=== PATIENT | female | born 1975 | race Caucasian/White ===

== ENCOUNTER → 2023-09-16 10:45 | Outpatient (REF) | payer OTHER, SELFPAY | LOC: HWRAD 10:45 | PROVIDERS: ATTENDING PHYSICIAN Family Medicine; FAMILY PHYSICIAN Family Medicine | DX: S20.20XA Contusion of thorax, unspecified, initial encounter (principal) | CPT/HCPCS: 71101 ==

== ENCOUNTER 2024-02-25 18:24 | Emergency (ER) | payer OTHER, SELFPAY ==
[2024-02-25 18:31] VITALS: BP 162/117
[2024-02-25 19:00] LABS: % Basophils 0.3 % (0-2); % Eosinophils 0.1 % (0-6); % Immature Granulocytes 0.4 % (0-0.5); % Lymphocytes 12.1 % (20.5-51.1); % Monocytes 6.3 % (1.7-9.3); % Neutrophils 80.8 % (42.2-75.2); Absolute Immature Granulocytes 0.1 10^3/uL (0-0.05); Absolute Lymphocytes 1.5 10^3/uL (1.2-3.4); Absolute Monocytes 0.8 10^3/uL (0.1-0.6); Hematocrit 41.6 % (37.0-47.0); Hemoglobin 14.3 g/dL (12.0-16.0); Mean Corp Hgb Conc. 34.4 g/dL (33.0-37.0); Mean Corpuscular Hgb 26.6 pg (27.0-31.0); Mean Corpuscular Volume 77.3 fL (81.0-99.0); Mean Platelet Volume 9.6 fL (7.4-10.4); Nucleated Red Blood Cells % 0 %; Platelet Count 418 10^3/uL (130-400); Red Blood Cell Count 5.38 10^6/uL (4.20-5.40); Red Cell Dist. Width 15.6 % (11.5-14.5); White Blood Cell Count 12.3 10^3/uL (4.8-10.8)
[2024-02-25 19:01] LABS: HCG, Serum Qualitative Screen Negative
[2024-02-25 19:09] LABS: ALT (SGPT) 35 U/L (0-35); AST (SGOT) 41 U/L (14-36); Albumin 4.9 g/dl (3.5-5.0); Alkaline Phosphatase 115 U/L (38-126); Blood Urea Nitrogen 18 mg/dl (7-17); Calcium 10.3 mg/dl (8.4-10.2); Carbon Dioxide 28 mmol/L (22-30); Chloride 91 mmol/L (98-107); Glucose 135 mg/dl (70-99); Potassium 4.2 mmol/L (3.5-5.1); Sodium 135 mmol/L (135-145); Total Bilirubin 1.3 mg/dl (0.2-1.3); Total Protein 7.9 g/dl (6.3-8.2); eGFR > 60.00
--- NOTE | 2024-02-25 19:48 | ED.GENMED ---
Addendum entered and electronically signed by TAVO Huang 02/25/24 22:26:
ECG- rate 94, Sr, Normal axis. QRS normal. Long QT, Negative for ischemia.
Original Note:
History of Present Illness
General
Chief Complaint: Abdominal Symptoms
Source: patient
Exam Limitations: none
Time Seen by Provider: 02/25/24 19:15
History of Present Illness
History of Present Illness:
This is a 48 year old female that comes in with c/o abd pain. States that she was diagnosed with COVID on . States that she has not been able to eat or drink in the past 2-3 days. States that she has not had a BM or urinated. States that
everything she puts in her mouth she vomits. States that she has lower back pain and abd pain. States that her abd pain feels like cramping. States that she also has a headache. Denies any fever, chills, chest pain, SOB, diarrhea, dizziness, urinary
burning.
Past History
Past History
ED Past Medical History: Seizures and Other (Migraine, UTI, constipation, Anemia, ); Negative Asthma, HTN, Hypercholesterolemia or NIDDM
ED Past Surgical History: Gynecological (tubal) and Other (Brain surgery)
Patient has exhibited threatening behavior?: No
PSI?: No
Social History
Tobacco: Smoker
Alcohol: Occasional
Drug: None
Personal: Single
Living: with family
Employment: Employed
Family History
Family History: Diabetes
Review of Systems
Review of Systems
All Other Systems: ROS reviewed and negative except as documented in HPI and ROS
Constitutional: Reports no symptoms; Denies fever or chills
EENT: Reports no symptoms
Respiratory: Reports no symptoms; Denies cough or trouble breathing
Cardiac: Reports no symptoms; Denies chest pain
ABD/GI: Reports abdominal pain, nausea and vomiting; Denies diarrhea
: Reports other (decreased urine output); Denies dysuria, frequency or urgency
Musculoskeletal: Reports no symptoms
Skin: Reports no symptoms
Neurological: Reports headache; Denies dizzy
Psychiatric: Reports no symptoms
Phy Exam
General Physical Exam
General Presentation: no apparent distress
General age: appears stated age
General Skin: warm and dry
General Habitus: normal
General Mental: alert
General Hydration: dry mucous membranes
ENT Exam
ENT Exam: TM's normal, pharynx normal and neck supple
Eye Exam
Eye Exam: EOMI
Cardiovascular Exam
Cardiovascular Exam: regular rate/rhythm, no edema, no murmur and normal peripheral pulses
Pulmonary Exam
Pulmonary Exam: lungs clear, no respiratory distress, no rales, chest non tender, no crackles, no rhonchi, no wheezing and no cough
Gastrointestinal Exam
Gastrointestinal Exam: normal bowel sounds, soft, no organomegaly, no pulsatile mass, non distended and tender (Lower abd tenderness with palpation)
Musculoskeletal Exam
Musculoskeletal Exam: full ROM and no edema
Skin Exam
Skin Exam: normal color, warm/dry, no rash and no petechia
Psychiatric Exam
Psychiatric Exam: normal mood/affect
Course
Orders/Labs/Results
Orders:
Orders
02/25/24 18:33
Test Result ONCE
02/25/24 18:34
Complete Blood Count/With Diff Urgent
Comprehensive Metabolic Panel Urgent
HCG, Serum Qualitative Screen Urgent
02/25/24 19:46
CT Abd/pelvis W Iv Cont Urgent
Comment:
Reason For Exam: Lower abd tenderness with palpation
0.9% Sodium Chloride 1000 ml [Nss] 1,000 ml IV BOLUS
02/25/24 19:47
Electrocardiogram (*1) Urgent
Reason for Study: QTc Monitoring
EKG- Treatment ONCE
Ondansetron Injectable [Zofran] 4 mg IV NOW STA
02/25/24 21:24
Urinalysis Reflex To Culture Urgent
Date Specimen was Collected: 02/25/24
Time Specimen was Collected: 19:53
Abnormal Lab Results
02/25/24
18:34
WBC 12.3 H 10^3/uL
(4.8-10.8)
MCV 77.3 L fL
(81.0-99.0)
MCH 26.6 L pg
(27.0-31.0)
RDW 15.6 H %
(11.5-14.5)
Plt Count 418 H 10^3/uL
(130-400)
Abs Immat Gran (auto) 0.1 H 10^3/uL
(0-0.05)
Absolute Neuts (auto) 10.0 H 10^3/uL
(1.4-6.5)
Absolute Monos (auto) 0.8 H 10^3/uL
(0.1-0.6)
Neutrophils % 80.8 H %
(42.2-75.2)
Lymphocytes % 12.1 L %
(20.5-51.1)
Chloride 91 L mmol/L
(98-107)
BUN 18 H mg/dl
(7-17)
Glucose 135 H mg/dl
(70-99)
Calcium 10.3 H mg/dl
(8.4-10.2)
AST 41 H U/L
(14-36)
02/25/24 18:34
02/25/24 18:34
Leukocytosis, Plt slightly elevated. chloride low. slight Dehydration, Hyperglycemia, AST mildly elevated. HCG negative. Urine negative for infection.
Vital Signs
Initial and Last Documented VS:
Initial Vital Signs
Temp Pulse Resp BP Pulse Ox
99.5 F 101 16 162/117 97
02/25/24 18:31 02/25/24 18:31 02/25/24 18:31 02/25/24 18:31 02/25/24 18:31
Last Documented Vital Signs
Temp Pulse Resp BP Pulse Ox
99.5 F 101 16 155/77 93
02/25/24 18:31 02/25/24 18:31 02/25/24 18:31 02/25/24 20:18 02/25/24 20:18
MDM/Problems Addressed
Differential Diagnosis Includes:
Constipation. Diverticulitis, UTI
MDM/Problems Addressed:
this is a 48 year old female that comes in with c/o abd pain, vomiting, and decreased urine output. Stae that this started 2-3 days ago. State that everything she tried to eat or drink she vomits right back up.
Will check labs, IV fluids, urine, CT abd.
Back into see patient. Explained that her CT is normal and her urine is negative for infection. Patient to stay on a liquid diet for the next 24 hours and increase her diet as tolerated. A prescription for Zofran has been sent to your Pharmacy.
Follow up with the family doctor for recheck. IF YOU HAVE AN YOTHER CONCERNS PLEASE RETURN TO THE EMERGENCY ROOM.
Chronic conditions affecting care:
history of UTI, constipation
Acute Exacerbation and/or Progression of Chronic Illness:
UTi history.
*Radiology
Radiology exam reviewed: radiology read reviewed (CT-NO signifcantacute abnormality identified in the abdomen or pelvis , as described above. Normal appendix. )
*Pulse Oximetry
Patient hypoxic: no
*Sketch Liner Interpretation
Rate: Sketch Liner- N/A
*Critical Care Note
Total Time (30-74mins, 75-104mins- exclusive of procedures): Not Applicable
ED Attending Note
-
Portions of this chart may have been created with voice recognition software.� Occasional wrong word or��sound alike� substitutions may have occurred due to the inherent limitations of voice recognition software.
Discharge Plan
Departure
Patient Disposition: Home (Routine Discharge)
Date of Disposition: 02/25/24
Time of Disposition: 21:56
Patient with high blood pressure during this ER visit?: Yes
Condition: Good
Covid-19: Not Applicable
Discharge Problem:
Nausea & vomiting, Abdominal pain
Instructions: Clear Liquid Diet, Nausea and Vomiting, Adult (DC), Abdominal Pain, BLOOD PRESSURE
Prescriptions:
New
ondansetron 4 mg tablet,disintegrating
4 mg PO Q8H PRN (Reason: nausea and vomiting) Qty: 10 0RF
No Action
lamotrigine 100 MG tablet
300 mg PO BID
citalopram 10 mg Tablet
10 mg PO DAILY
omeprazole 20 mg Capsule,Delayed Release(Dr/Ec)
20 mg PO DAILY
cetirizine [Zyrtec] 10 mg Tablet
10 mg PO DAILY
acetaminophen 325 mg Tablet
650 mg PO Q6HPRN PRN (Reason: mild pain/ fever>100.5F) Qty: 100 0RF
ondansetron 4 mg tablet,disintegrating
4 mg PO Q6H PRN (Reason: nausea and vomiting) Qty: 30 0RF
Referrals:
Luiz Jacinto MD [Family Provider] - Call in 1-3 days for appt
Activity Restrictions/Additional Instructions:
As discussed, your blood work shows that your white blood cell count is slightly elevated. your urine is negative for infection and your CT scan is negative for any acute process. This may all be due to COVID. A prescription for Zofran has been sent
to your Pharmacy. Please stay on a liquid diet tomorrow and advance as tolerated. Please increase your water intake to 8-8oz glasses daily. Follow up with the family doctor. IF YOU HAVE ANY OTHER CONCERNS PLEASE RETURN TO THE EMERGENCY ROOM.
Interventions
Interventions:
*Risk Screen - Suicide Last Done: 02/25/24 20:19
*General Assessment Last Done: 02/25/24 20:19
*Neglect/Abuse Screening Last Done: 02/25/24 20:19
*ED COVID-19 Vaccine History Last Done: 02/25/24 20:19
JZ-Leyxzt-Ijofmrwtuc Assessment Last Done: 02/25/24 20:19
Discharge Date and Time
Print Language: AZERI
[2024-02-25 20:09] VITALS: BMI 30.1
[2024-02-25] MEDS: NSS 1000 IV (20:11)
[2024-02-25] MEDS: ZOFRAN 4 MG IV (20:13)
[2024-02-25 20:18] VITALS: BP 155/77
[2024-02-25 21:30] LABS: Urine Albumin Trace (Neg - Trace); Urine Bilirubin Negative (Negative); Urine Character Clear (Clear); Urine Color Yellow; Urine Glucose Negative (Negative); Urine Ketone Negative (Negative); Urine Leukocyte Negative (Negative); Urine Nitrite Negative (Negative); Urine Occult Blood Negative (Negative); Urine Urobilinogen Negative (Neg - 1+)
--- NOTE | 2024-02-25 22:20 | ED.GENMED ---
History of Present Illness
General
Chief Complaint: Abdominal Symptoms
Time Seen by Provider: 02/25/24 19:15
Past History
Past History
ED Past Medical History: Seizures and Other (Migraine, UTI, constipation, Anemia, ); Negative Asthma, HTN, Hypercholesterolemia or NIDDM
ED Past Surgical History: Gynecological (tubal) and Other (Brain surgery)
Patient has exhibited threatening behavior?: No
PSI?: No
Social History
Tobacco: Smoker
Alcohol: Occasional
Drug: None
Personal: Single
Living: with family
Employment: Employed
Family History
Family History: Diabetes
Course
Orders/Labs/Results
Orders:
Orders
02/25/24 18:33
Test Result ONCE
02/25/24 18:34
Complete Blood Count/With Diff Urgent
Comprehensive Metabolic Panel Urgent
HCG, Serum Qualitative Screen Urgent
02/25/24 19:46
CT Abd/pelvis W Iv Cont Urgent
Comment:
Reason For Exam: Lower abd tenderness with palpation
0.9% Sodium Chloride 1000 ml [Nss] 1,000 ml IV BOLUS
02/25/24 19:47
Electrocardiogram (*1) Urgent
Reason for Study: QTc Monitoring
EKG- Treatment ONCE
Ondansetron Injectable [Zofran] 4 mg IV NOW STA
02/25/24 21:24
Urinalysis Reflex To Culture Urgent
Date Specimen was Collected: 02/25/24
Time Specimen was Collected: 19:53
02/25/24 22:18
Ondansetron Injectable [Zofran] 4 mg IV NOW STA
Abnormal Lab Results
02/25/24
18:34
WBC 12.3 H 10^3/uL
(4.8-10.8)
MCV 77.3 L fL
(81.0-99.0)
MCH 26.6 L pg
(27.0-31.0)
RDW 15.6 H %
(11.5-14.5)
Plt Count 418 H 10^3/uL
(130-400)
Abs Immat Gran (auto) 0.1 H 10^3/uL
(0-0.05)
Absolute Neuts (auto) 10.0 H 10^3/uL
(1.4-6.5)
Absolute Monos (auto) 0.8 H 10^3/uL
(0.1-0.6)
Neutrophils % 80.8 H %
(42.2-75.2)
Lymphocytes % 12.1 L %
(20.5-51.1)
Chloride 91 L mmol/L
(98-107)
BUN 18 H mg/dl
(7-17)
Glucose 135 H mg/dl
(70-99)
Calcium 10.3 H mg/dl
(8.4-10.2)
AST 41 H U/L
(14-36)
02/25/24 18:34
02/25/24 18:34
Vital Signs
Initial and Last Documented VS:
Initial Vital Signs
Temp Pulse Resp BP Pulse Ox
99.5 F 101 16 162/117 97
02/25/24 18:31 02/25/24 18:31 02/25/24 18:31 02/25/24 18:31 02/25/24 18:31
Last Documented Vital Signs
Temp Pulse Resp BP Pulse Ox
99.5 F 101 16 155/77 93
02/25/24 18:31 02/25/24 18:31 02/25/24 18:31 02/25/24 20:18 02/25/24 20:18
*EKG
Interpreted by ED Provider?: Yes
Heart Rate: 94
Rate: normal
Rhythm: sinus
[place]: normal axis
Interval: long QT
QRS Pattern: normal QRS
Ischemia: no ischemia
ED Attending Note
-
Portions of this chart may have been created with voice recognition software.� Occasional wrong word or��sound alike� substitutions may have occurred due to the inherent limitations of voice recognition software.
Discharge Plan
Departure
Patient Disposition: Home (Routine Discharge)
Date of Disposition: 02/25/24
Time of Disposition: 21:56
Patient with high blood pressure during this ER visit?: Yes
Condition: Good
Covid-19: Not Applicable
Discharge Problem:
Nausea & vomiting, Abdominal pain
Instructions: Clear Liquid Diet, Nausea and Vomiting, Adult (DC), Abdominal Pain, BLOOD PRESSURE
Prescriptions:
New
metoclopramide HCl [Reglan] 10 mg tablet
10 mg PO Q8HPRN PRN (Reason: nausea and vomiting) Qty: 9 0RF
Discontinued
ondansetron 4 mg tablet,disintegrating
4 mg PO Q6H PRN (Reason: nausea and vomiting) Qty: 30 0RF
No Action
lamotrigine 100 MG tablet
300 mg PO BID
citalopram 10 mg Tablet
10 mg PO DAILY
omeprazole 20 mg Capsule,Delayed Release(Dr/Ec)
20 mg PO DAILY
cetirizine [Zyrtec] 10 mg Tablet
10 mg PO DAILY
acetaminophen 325 mg Tablet
650 mg PO Q6HPRN PRN (Reason: mild pain/ fever>100.5F) Qty: 100 0RF
Referrals:
Luiz Jacinto MD [Family Provider] - Call in 1-3 days for appt
Activity Restrictions/Additional Instructions:
As discussed, your blood work shows that your white blood cell count is slightly elevated. your urine is negative for infection and your CT scan is negative for any acute process. This may all be due to COVID. A prescription for Zofran has been sent
to your Pharmacy. Please stay on a liquid diet tomorrow and advance as tolerated. Please increase your water intake to 8-8oz glasses daily. Follow up with the family doctor. IF YOU HAVE ANY OTHER CONCERNS PLEASE RETURN TO THE EMERGENCY ROOM.
Interventions
Interventions:
*Risk Screen - Suicide Last Done: 02/25/24 20:19
*General Assessment Last Done: 02/25/24 20:19
*Neglect/Abuse Screening Last Done: 02/25/24 20:19
*ED COVID-19 Vaccine History Last Done: 02/25/24 20:19
JH-Uogiwc-Nnkubsfwnc Assessment Last Done: 02/25/24 20:19
Discharge Date and Time
Print Language: BURUNDIAN
[2024-02-25 22:22] VITALS: BP 134/58
[2024-02-25] MEDS: REGLAN 10 MG IV (22:25)
== END 2024-02-25 22:40 | disposition home or self-care (01) ==
LOC: EMR 18:24
PROVIDERS: Clinical Nurse Specialist Family Health; Emergency Medicine; EMERGENCY PHYSICIAN Emergency Medicine; FAMILY PHYSICIAN Family Medicine
DX: R11.2 Nausea with vomiting, unspecified (principal); R10.9 Unspecified abdominal pain; I10 Essential (primary) hypertension; F17.200 Nicotine dependence, unspecified, uncomplicated
CPT/HCPCS: 99285; 96374; 96375; 96361; 74177; 80053; 81003; 84703; 85025; 93005; Q9967

== ENCOUNTER → 2024-03-23 15:08 | Outpatient (REF) | payer OTHER, SELFPAY | LOC: HWRAD 15:08 | PROVIDERS: ATTENDING PHYSICIAN Family Medicine | DX: S69.91XA Unspecified injury of right wrist, hand and finger(s), initial encounter (principal) | CPT/HCPCS: 73140 ==

== ENCOUNTER 2024-05-23 06:33 | Emergency (ER) | payer OTHER, SELFPAY ==
[2024-05-23 06:36] VITALS: BP 133/88; BMI 29.0
--- NOTE | 2024-05-23 06:54 | EDRN ---
Pts Clobazam bottle was filled 3 days ago - prescribed 1/2 pill daily , states she took the whole bottle over the past day.
[2024-05-23 07:03] LABS: % Basophils 0.7 % (0-2); % Eosinophils 2.7 % (0-6); % Immature Granulocytes 0.5 % (0-0.5); % Lymphocytes 21.2 % (20.5-51.1); % Monocytes 6.8 % (1.7-9.3); % Neutrophils 68.1 % (42.2-75.2); Absolute Basophils 0.1 10^3/uL (0-0.2); Absolute Eosinophils 0.3 10^3/uL (0-0.7); Absolute Immature Granulocytes 0.1 10^3/uL (0-0.05); Absolute Lymphocytes 2.2 10^3/uL (1.2-3.4); Absolute Monocytes 0.7 10^3/uL (0.1-0.6); Absolute Neutrophils 6.9 10^3/uL (1.4-6.5); Hematocrit 36.9 % (37.0-47.0); Hemoglobin 12.1 g/dL (12.0-16.0); Mean Corp Hgb Conc. 32.8 g/dL (33.0-37.0); Mean Corpuscular Hgb 28.5 pg (27.0-31.0); Mean Corpuscular Volume 86.8 fL (81.0-99.0); Mean Platelet Volume 9.4 fL (7.4-10.4); Nucleated Red Blood Cells % 0 %; Platelet Count 312 10^3/uL (130-400); Red Blood Cell Count 4.25 10^6/uL (4.20-5.40); Red Cell Dist. Width 14.2 % (11.5-14.5); White Blood Cell Count 10.2 10^3/uL (4.8-10.8)
[2024-05-23 07:13] LABS: HCG, Serum Qualitative Screen Negative
[2024-05-23 07:20] LABS: Amphetamines Negative (Negative); Barbiturates Negative (Negative); Benzodiazepines Positive (Negative); Cocaine Positive (Negative); Marijuana Positive (Negative)
[2024-05-23 07:21] LABS: Buprenorphine Negative (Negative); Methadone Negative (Negative); Methamphetamines Negative (Negative); Opiates Negative (Negative); Phencyclidine Negative (Negative); Tricyclic Antidepressants Negative (Negative)
[2024-05-23 07:22] LABS: Alcohol 83 mg/dl; Blood Urea Nitrogen 10 mg/dl (7-17); Calcium 9.3 mg/dl (8.4-10.2); Carbon Dioxide 29 mmol/L (22-30); Chloride 101 mmol/L (98-107); Estimated Creatinine Clearance 96 ml/min; Glucose 101 mg/dl (70-99); Potassium 4.2 mmol/L (3.5-5.1); Sodium 139 mmol/L (135-145); eGFR > 60.00
[2024-05-23 07:39] VITALS: BP 121/70
[2024-05-23 07:50] LABS: Fentanyl, Urine Negative (Negative)
--- NOTE | 2024-05-23 08:33 | ED.GENMED ---
History of Present Illness
General
Chief Complaint: Crisis Evaluation
Source: patient
Exam Limitations: none
Time Seen by Provider: 05/23/24 06:41
History of Present Illness
History of Present Illness:
49-year-old female who presents for evaluation after she became depressed and took the rest of her clobazam. She also admits she was drinking last night and after walking home fell when she was almost home. She injured her right hand and her right
foot. She also thinks she might of struck her face. Patient admits that she has been drinking pretty frequently. She has been depressed about the fact that her daughter moved to [place] and also recently lost her job. Patient states she is
starting to think that maybe it would be better if she was not around. Currently complains of pain in her right third digit of her hand as well as her distal midfoot. No chest pain. No shortness of breath.
Past History
Past History
ED Past Medical History: Seizures and Other (Migraines, depression, anemia)
Patient has exhibited threatening behavior?: No
PSI?: No
Social History
Tobacco: Smoker
Alcohol: None
Drug: None
Personal: Other
Living: with family
Employment: Employed
Family History
Family History: Diabetes
Phy Exam
Physical Exam
Physical Exam:
CONSTITUTIONAL Patient alert and oriented to person, place and time. Well-appearing. Vital signs reviewed.
HEAD superficial abrasion to the nose as well as the right side of the face just above the zygomatic arch
EYES eyelids normal to inspection, Extraocular muscles intact, Conjunctiva normal, Sclera normal.
NECK normal range of motion, Trachea midline, no jugular venous distention.
RESPIRATORY CHEST No respiratory distress noted, Chest expansion equal
ABDOMEN abdomen nontender, Bowel sounds normal. No distention.
BACK normal inspection, no obvious deformities
UPPER EXTREMITY range of motion normal, Motor strength normal, no cyanosis, swelling and ecchymosis noted to the right third digit of the hand. There is tenderness at both the PIP and DIP. Metacarpals nontender. Other digits nontender. Small
abrasion to the tip of the third digit.
LOWER EXTREMITY range of motion normal, Motor strength normal, no cyanosis, no edema. Mild tenderness to the distal metatarsals (2-4) rest of midfoot nontender. Ankle unaffected. Calcaneus nontender
NEURO Speech normal, No focal motor deficits, Jorden coma scale 15, Memory normal, Cranial Nerves intact to screening exam.
SKIN skin warm, dry, and normal in color.
Course
Orders/Labs/Results
Orders:
Orders
05/23/24 06:49
1:1 Observation - Suicide/ Violent Behavior As Directed
Crisis Consult Urgent
Reason for Consult: suicidal
05/23/24 06:50
Test Result ONCE
05/23/24 06:51
Acetaminophen Urgent
Comment: ADD ON
Alcohol Urgent
Basic Metabolic Panel Urgent
Complete Blood Count/With Diff Urgent
Fentanyl, Urine Urgent
HCG, Serum Qualitative Screen Urgent
Comment: Notify provider if positive test present
Salicylate Urgent
Comment: ADD ON
Urine Drug Abuse Screen Urgent
Date Specimen was Collected: 05/23/24
Time Specimen was Collected: 06:50
05/23/24 08:29
CT Head W/o Iv Contrast Urgent
Comment:
Reason For Exam: fall
Foot, Right 3 View [CR Foot - Right Min 3 Views] Urgent
Comment:
Reason For Exam: fall
Hand, Right 3 View [CR Hand - Right Min 3 Views] Urgent
Comment:
Reason For Exam: fall
05/23/24 08:38
Electrocardiogram (*1) Stat
Reason for Study: Other
Other Reason for Exam: overdose
EKG- Treatment ONCE
05/23/24 08:46
Add On- LAB Urgent
Tests Added?: acetaminophen, salicylate
Abnormal Lab Results
05/23/24
06:51
Hct 36.9 L %
(37.0-47.0)
MCHC 32.8 L g/dL
(33.0-37.0)
Abs Immat Gran (auto) 0.1 H 10^3/uL
(0-0.05)
Absolute Neuts (auto) 6.9 H 10^3/uL
(1.4-6.5)
Absolute Monos (auto) 0.7 H 10^3/uL
(0.1-0.6)
Glucose 101 H mg/dl
(70-99)
Salicylates < 1.0 L mg/dl
(2.0-20.0)
Acetaminophen < 10 L ug/ml
(10-30)
U Benzodiazepines Scrn Positive H
(Negative)
Urine Cocaine Screen Positive H
(Negative)
U Marijuana (THC) Screen Positive H
(Negative)
05/23/24 06:51
05/23/24 06:51
Vital Signs
Initial and Last Documented VS:
Initial Vital Signs
Temp Pulse Resp BP Pulse Ox
98.7 F 96 20 133/88 98
05/23/24 06:36 05/23/24 06:36 05/23/24 06:36 05/23/24 06:36 05/23/24 06:36
Last Documented Vital Signs
Temp Pulse Resp BP Pulse Ox
98.3 F 76 18 131/86 98
05/23/24 13:22 05/23/24 13:22 05/23/24 13:22 05/23/24 13:22 05/23/24 13:22
MDM/Problems Addressed
MDM/Problems Addressed:
Abrasion, alcohol intoxication, benzodiazepine overdose, head injury, foot injury, major depression
*Radiology
Radiology exam reviewed: radiology read reviewed
*Pulse Oximetry
Patient hypoxic: no
*EKG
Interpreted by ED Provider?: Yes
Interpretation: normal
Rate: normal
[place]: normal axis
Interval: normal interval
QRS Pattern: normal QRS
Ischemia: no ischemia
*Critical Care Note
Total Time (30-74mins, 75-104mins- exclusive of procedures): 30 minutes
Data Reviewed
Source: patient
Patient Management
Discussion with other providers: Other (Crisis)
Escalation/DeEscalation of care consider admission/obs:
Considered admission to the hospital due to overdose but patient remained stable. Crisis obtaining placement
ED Attending Note
-
Portions of this chart may have been created with voice recognition software.� Occasional wrong word or��sound alike� substitutions may have occurred due to the inherent limitations of voice recognition software.
Discharge Plan
Departure
Patient Disposition: Psych Facility
Date of Disposition: 05/23/24
Time of Disposition: 08:33
Discharge Problem:
Alcohol abuse, Major depression, Overdose, Head injury
Prescriptions:
No Action
lamotrigine 100 MG tablet
300 mg PO BID
citalopram 10 mg Tablet
10 mg PO DAILY
omeprazole 20 mg Capsule,Delayed Release(Dr/Ec)
20 mg PO DAILY
cetirizine [Zyrtec] 10 mg Tablet
10 mg PO DAILY
acetaminophen 325 mg Tablet
650 mg PO Q6HPRN PRN (Reason: mild pain/ fever>100.5F) Qty: 100 0RF
metoclopramide HCl [Reglan] 10 mg tablet
10 mg PO Q8HPRN PRN (Reason: nausea and vomiting) Qty: 9 0RF
Referrals:
UNKNOWN - PT NOT,INTERVIEWE [Family Provider] -
Interventions
Interventions:
*Risk Screen - Suicide Last Done: 05/23/24 06:36
*General Assessment Last Done: 05/23/24 06:36
*Neglect/Abuse Screening Last Done: 05/23/24 06:36
ED- Fall Risk Assessment Last Done: 05/23/24 13:22
*ED COVID-19 Vaccine History Last Done: 05/23/24 06:36
*Nursing Disposition Last Done: 05/23/24 13:35
ED-Psychological Assessment Last Done: 05/23/24 13:22
Discharge Date and Time
Discharge Date/Time: 05/23/24 13:35
Print Language: SAMI
[2024-05-23 09:19] LABS: Acetaminophen < 10 ug/ml (10-30); Salicylate < 1.0 mg/dl (2.0-20.0)
[2024-05-23 13:22] VITALS: BP 131/86
--- NOTE | 2024-05-23 13:24 | EDRN ---
Pt refusing lunch, states she is not hungry, did not eat breakfast. Offered gingerale and fluids and refused as well. Awaiting transfer to in psych.
== END 2024-05-23 13:35 ==
LOC: EMR 06:33
PROVIDERS: EMERGENCY PHYSICIAN Emergency Medicine
DX: F10.10 Alcohol abuse, uncomplicated (principal); F32.A Depression, unspecified; S00.81XA Abrasion of other part of head, initial encounter; S60.412A Abrasion of right middle finger, initial encounter; S09.90XA Unspecified injury of head, initial encounter; S60.031A Contusion of right middle finger without damage to nail, initial encounter; W19.XXXA Unspecified fall, initial encounter; F17.200 Nicotine dependence, unspecified, uncomplicated
CPT/HCPCS: 99285; 70450; 73130; 73630; 80048; 80143; 80179; 80306; 80307; 82077; 84703; 85025; 93005

== ENCOUNTER 2024-08-02 16:09 | Emergency (ER) | payer OTHER, SELFPAY ==
[2024-08-02 16:11] VITALS: BP 164/92
--- NOTE | 2024-08-02 17:50 | ED.SKININJ ---
HPI-Injury
General
Chief Complaint: Head Injury
Source: patient
Exam Limitations: none
Time Seen by Provider: 08/02/24 17:02
Nursing documentation reviewed up to this point in time: agreed with
History of Present Illness-Injury
Is this injury a work related problem?: No
Is pt an associate of [facility]/[place]?: No
Initial Injury comments:
Patient states she tripped and fell in her bedroom early this AM. No LOC. SUstained lac to left forhead. Brought to ED by family for eval.
Past History
Past History
ED Past Medical History: Seizures and Other (Migraines, depression, anemia)
Patient has exhibited threatening behavior?: No
PSI?: No
Social History
Tobacco: Smoker
Alcohol: Other (Currently in outpatient rehab. No alcohol x 10 days.)
Drug: None
Personal: Other
Living: with family
Employment: Employed
Family History
Family History: Diabetes
Review of Systems
Review of Systems
Allergies reviewed?: Yes
All Other Systems: ROS reviewed and negative except as documented in HPI and ROS
Constitutional: Reports no symptoms
EENT: Reports no symptoms
Respiratory: Reports no symptoms
Cardiac: Reports no symptoms
ABD/GI: Reports no symptoms
Musculoskeletal: Reports other (bruising and swelling to left forearm.)
Skin: Reports other (laceration to left forehead.)
Neurological: Reports headache
Psychiatric: Reports no symptoms
Skin Exam
Laceration
Left Forehead:
Length in cm: 2
Orientation: diagonal
Type of Laceration: simple
Any active bleeding?: no active bleeding
Distal skin color and temperature: normal-warm & good color
Normal distal neurovascular exam: Yes
Range of motion: full
Phy Exam
General Physical Exam
General Presentation: well appearing and no apparent distress
General age: appears stated age
General Skin: warm and dry
General Habitus: normal
ENT Exam
ENT Exam: EOMI
Eye Exam
Eye Exam: PERRL and EOMI
Neurological Exam
Neurological Exam: alert, oriented x3, CN II-XII intact, no motor deficits, no sensory deficits and speech normal
Jorden Coma Scale
Eye Opening: Spontaneous
Verbal Response: Oriented
Motor Response: Obeys Commands
GCS Total Score: 15
Musculoskeletal Exam
Musculoskeletal Exam: neuro vasc intact
Skin Exam
Skin Exam: normal color, warm/dry and no rash
Psychiatric Exam
Psychiatric Exam: normal mood/affect
Course
Orders/Labs/Results
Orders:
Orders
08/02/24 17:44
CT Head W/o Iv Contrast Urgent
Comment:
Reason For Exam: trauma
Cephalexin Monohydrate [Keflex] 500 mg PO NOW STA
Tetanus/Diphth/Acelpertussis [Adacel] 0.5 ml IM .ONCE ONE
08/02/24 17:51
Forearm, Left 2 View [CR Forearm - Left 2 View] Urgent
Comment:
Reason For Exam: fall
08/02/24 18:20
Acetaminophen [Tylenol] 1,000 mg PO NOW STA
08/02/24 18:21
Acetaminophen [Tylenol] 1,000 mg .ROUTE .STK-MED ONE
Vital Signs
Initial and Last Documented VS:
Initial Vital Signs
Temp Pulse Resp BP Pulse Ox
98.9 F 91 16 164/92 98
08/02/24 16:11 08/02/24 16:11 08/02/24 16:11 08/02/24 16:11 08/02/24 16:11
Last Documented Vital Signs
Temp Pulse Resp BP Pulse Ox
98.9 F 91 16 164/92 98
08/02/24 16:11 08/02/24 16:11 08/02/24 16:11 08/02/24 16:11 08/02/24 16:11
Procedures
Laceration Closure
Left Forehead:
Status of Wound: clean
Description of Wound Edges: sharp
Preparation: cleaned with saline and cleaned with Betadine
Anesthesia: 1% Lidocaine
Revision/Debridement: routine- no revision
Wound exploration: explored to base- no FB
Type of Closure: single layer closure
Skin Closure Material: 6-0 prolene
Number of sutures: 8
*Radiology
Radiology exam reviewed: radiology read reviewed
*Pulse Oximetry
Patient hypoxic: no
*Critical Care Note
Total Time (30-74mins, 75-104mins- exclusive of procedures): Not Applicable
ED Attending Note
-
Portions of this chart may have been created with voice recognition software.� Occasional wrong word or��sound alike� substitutions may have occurred due to the inherent limitations of voice recognition software.
Discharge Plan
Departure
Patient Disposition: Home (Routine Discharge)
Date of Disposition: 08/02/24
Time of Disposition: 19:48
Patient with high blood pressure during this ER visit?: No
Condition: Good
Covid-19: Not Applicable
Discharge Problem:
Head injury
Instructions: Head Injury in Adults (DC), Contusion (DC), Laceration Repair With Stitches (DC)
Prescriptions:
New
cephalexin 500 mg capsule
500 mg PO BID 7 Days Qty: 14 0RF
No Action
lamotrigine 100 MG tablet
300 mg PO BID
citalopram 10 mg Tablet
10 mg PO DAILY
omeprazole 20 mg Capsule,Delayed Release(Dr/Ec)
20 mg PO DAILY
cetirizine [Zyrtec] 10 mg Tablet
10 mg PO DAILY
acetaminophen 325 mg Tablet
650 mg PO Q6HPRN PRN (Reason: mild pain/ fever>100.5F) Qty: 100 0RF
metoclopramide HCl [Reglan] 10 mg tablet
10 mg PO Q8HPRN PRN (Reason: nausea and vomiting) Qty: 9 0RF
Referrals:
Luiz Jacinto MD [Family Provider] - (Sutures can be removed in 5-7 days.)
Interventions
Interventions:
*Risk Screen - Suicide Last Done: 08/02/24 16:11
*General Assessment Last Done: 08/02/24 16:11
*Neglect/Abuse Screening Last Done: 08/02/24 16:11
*ED COVID-19 Vaccine History Last Done: 08/02/24 16:11
Discharge Date and Time
Print Language: [place]IZ[place]
Musculoskeletal Injury Exam
Musculoskeletal Injury Exam
Left Arm:
Pain with Movement?: Mild
Tender to palpation?: Moderate
Soft tissue swelling?: Moderate
External deformity and angulation?: None
Contusion?: Moderate
Hematoma-local bleeding into tissue?: Moderate
Strain- Sprain- Tear (Connective tissue injury)?: None
Crepitus with movement?: No
Joint instability?: No
Malalignment/deformity?: No
Range of motion: Limited
Distal skin color and temperature: normal-warm & good color
Capillary Refill: normal
Normal distal neurovascular exam?: Yes
Peripheral Pulses: radial (left): 3+
[2024-08-02] MEDS: ADACEL 0.5 ML IM (18:17)
[2024-08-02] MEDS: KEFLEX 500 MG PO (18:17)
[2024-08-02] MEDS: TYLENOL 1000 MG PO (18:23)
[2024-08-02 20:14] VITALS: BP 126/75
== END 2024-08-02 20:17 | disposition home or self-care (01) ==
LOC: EMR 16:09
PROVIDERS: EMERGENCY PHYSICIAN Student in an Organized Health Care Education/Training Program; FAMILY PHYSICIAN Family Medicine
DX: S01.81XA Laceration without foreign body of other part of head, initial encounter (principal); S50.12XA Contusion of left forearm, initial encounter; W01.0XXA Fall on same level from slipping, tripping and stumbling without subsequent striking against object, initial encounter; F17.200 Nicotine dependence, unspecified, uncomplicated; Z23 Encounter for immunization
CPT/HCPCS: 12011; 90471; 99284; 70450; 73090; 90715